=== PATIENT | female | born 1995 | race Caucasian/White ===

== ENCOUNTER → 2016-04-22 | Outpatient (CLI) | payer BC | LOC: COL.RAD 08:01 | DX: M25.561 Pain in right knee (principal); M25.461 Effusion, right knee; M25.861 Other specified joint disorders, right knee; M89.9 Disorder of bone, unspecified ==

== ENCOUNTER → 2016-09-18 | Outpatient (REF) | LOC: WSOH 15:00 | DX: Z01.89 Encounter for other specified special examinations (principal) ==